=== PATIENT | male | born 1950 ===

== ENCOUNTER → 2021-04-20 | Outpatient (CLI) | payer OTHER ==
--- NOTE | 2021-04-20 16:29 | RAD ---
EXAM: Renal sonogram. HISTORY: Decreased renal function. TECHNIQUE: Sonographic imaging of the kidneys and bladder was performed. COMPARISON: None. FINDINGS: The kidneys are normal in size. There is a 2.0 cm simple appearing left renal cyst. Follow- up is not routinely performed for simple cysts. There is left renal cortical lobulation likely due to scarring. There is no hydronephrosis. The prevoid bladder volume is 26 cc. The ureteral jets are not seen during the exam. The prostate is enlarged, measuring 5.0 cm. IMPRESSION: 1. Small simple left renal cyst. 2. Left renal cortical scarring. 3. Prostatomegaly. Electronically signed by: Camila Lane MD (04/20/2021 4:27 PM) [id number]
== END ==
LOC: US 15:57
PROVIDERS: ATTEND Family Medicine
DX: N40.0 Benign prostatic hyperplasia without lower urinary tract symptoms (principal); N28.1 Cyst of kidney, acquired
CPT/HCPCS: 76770